=== PATIENT | male | born 1985 | race Two or more races ===

== ENCOUNTER → 2024-11-12 | Outpatient (CLI) | payer OTHER, SELFPAY ==
--- NOTE | 2024-11-12 15:40 | XR_ITS ---
Examination: Knee, right , 3 views Technique: Knee AP, lateral, oblique 3 views Date and time of exam: November 12, 2024 1604 hours INDICATIONS: Injury to the knee today, knee pain FINDINGS: Mild tricompartment osteoarthritis No fracture or dislocation Minimal knee effusion IMPRESSION: No fracture or dislocation
== END | disposition home or self-care (01) ==
LOC: CDIM 15:28
PROVIDERS: PCP Family Medicine; Referring Provider Family Medicine; Visit Provider Family Medicine
DX: S80.01XA Contusion of right knee, initial encounter (principal); X58.XXXA Exposure to other specified factors, initial encounter
CPT/HCPCS: 73562